=== PATIENT | male | born 1965 | race Caucasian/White ===

== ENCOUNTER 2016-10-04 08:06 | Observation (INO) | payer BC ==
--- NOTE | 2016-10-04 08:36 | ERNOTE ---
Lower Extremity HPI - General Lower Extremities Pain: leg: right Source: patient Exam Limitations: no limitations - Immun/Allergies/Home Medications Immunizations: IMMUNIZATION HX Immunizations Up to Date Yes History of Influenza Vaccine No Allergies/Adverse Reactions: Allergies Allergy/AdvReac Type Severity Reaction Status Date / Time No Known Allergies Allergy Verified 10/04/16 12:46 Home Medications: HOME MEDICATIONS NK [No Home Medication] 10/04/16 [Last Taken Unknown] - History of Present Illness Narrative: Patient woke up this morning with the feeling of a 'kirk horse' in his right calf. He is concerned as it is the same symptom that he had with a DVT in the past. He states that he was diagosed with an unprovoked DVT in 2006, had three intervention including filter placement (that was removed later) and diagnosis of PE, he was on coumadin till 2011. He also noticed in the night right lateral abdominal/flank pain Date (Duration): 10/04/16 Time (Timing): 03:00 Occurred: this morning Review of Systems - Review of Systems Constitutional: Absent: recent illness, fever Respiratory: Absent: shortness of breath, cough Cardiology: Absent: chest pain, palpitations Gastrointestinal/Abdominal: Present: See HPI, abdominal pain. Absent: nausea, vomiting, diarrhea Genitourinary: Present: no symptoms reported Musculoskeletal: Present: See HPI Skin: Absent: rash Neurological: Absent: weakness, numbness - Patient's Past Medical History Patient History - Medical: Kidney stone Patient History - Cardiac/Respiratory: Deep Vein Thrombosis, Pulmonary Embolism Patient History - Cancer: No Hx of Cancer Patient History - Surgical Procedures: No surgical history Patient History - Other: None - Family History Father Family History - Medical: Diabetes Type 2 Mother Family History - Medical: Diabetes Type 2 Family History - Cardiac/Respiratory: Coronary Heart Disease, CVA/Stroke Brother Family History - Cardiac/Respiratory: Hypertension Sister Family History - Medical: Diabetes Type 2 - Social History Living Situations: home Psych History: No pertinent hx Smoking Status: Never smoker Have you smoked in the past 12 months: No Do you dip or chew tobacco: No Alcohol Use: occasionally Drug Use: none - Immunizations Immunizations Up to Date: Yes History of Influenza Vaccine: No Physical Exam - Physical Exam General Appearance: Present: wd/wn, alert, no apparent distress Respiratory: Present: no respiratory distress, normal breath sounds, no accessory muscle use, chest nontender, lungs clear Cardiovascular/Chest: Present: regular rate, rhythm, no murmur Gastrointestinal/Abdominal: Present: normal bowel sounds, nondistended, soft, tenderness - right lateral abdomen in mid axillary line between ribs and pelvis mildly tender Extremity Exam: Present: normal inspection, no edema, other - tender in popliteal fossa, right calf 2cm> than left. Absent: calf tenderness Neurological Exam: Present: alert, oriented, normal mood/affect, no motor/ sensory deficits ED Progress - Results and Orders Patient's Lab Results:: I have reviewed the patient's lab results. - Vital Signs Patient's Vital Signs:: I have reviewed the patient's vital signs. Vital Signs: Vital Signs 10/04/16 08:18 Temperature 37.0 C Pulse Rate 107 H Respiratory 16 Rate Blood Pressure 155/93 O2 Sat by Pulse 97 Oximetry - CT/Ultrasound CT/Ultrasound Narrative: U/S DVT involving calf, popliteal and femoral veins CT chest: multiple PE in multiple lobes - Progress/Reassessment Chief Complaint: Lower Extremity Pain/ Injury Progress Note-Subjective: 10/04/16 10:12 discussed U/S results, as patient was slightly tachycardic on arrival and had prior PE will get chest CT to look for PE 10/04/16 11:[address] results with patient, agrees to admission 10/04/16 11:41 discussed with Gela Meza, okay to admit, will give lovenox in ER and have attending decide on choice of anticoagulation patient also has new onset diabetes, not in DKA though, can't start metformin as patient just had IV contrast, will give dose of insulin, consider incidental pancreatic findings Departure Clinical Impression: DVT (deep venous thrombosis) Qualifiers: DVT location: lower extremity Affected thrombotic vein of extremity: femoral Laterality: right Chronicity: acute Qualified Code(s): I82.411 - Acute embolism and thrombosis of right femoral vein Pulmonary embolism Qualifiers: Pulmonary embolism type: other Chronicity: acute Acute cor pulmonale presence: without acute cor pulmonale Qualified Code(s): I26.99 - Other pulmonary embolism without acute cor pulmonale Diabetes mellitus Qualifiers: Diabetes mellitus type: type 2 Diabetes mellitus complication status: without complication 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
[2016-10-04 10:08] LABS: Prothrombin Time (Patient) 10.6 Seconds (9.4-11.4)
[2016-10-04 10:10] LABS: INR 1.02 INR (0.90-1.10); Partial Thrombolplastin Time 26.5 Seconds (24-32)
[2016-10-04 10:12] LABS: Hematocrit 45.1 % (42.0-52.0); Hemoglobin 16.3 gm/dL (13.5-18.0); Mean Cell Volume 86.9 fl (78-100); Mean Corpuscular Hemoglobin 31.4 pg (27-31); Mean Corpuscular Hgb Conc 36.1 g/dl (32-36); Mean Platelet Volume 10.3 fl (6.0-9.5); Platelet Count 161 K/mm3 (150-450); Red Blood Count 5.19 M/mm3 (4.7-6.0); White Blood Count 8.7 K/mm3 (4.0-10.5)
[2016-10-04 10:14] LABS: Total Cells Counted 100
[2016-10-04 10:26] LABS: Band 4 % (0-2.0); Lymphocyte 11 % (20-51); Monocyte 2 % (0-9); Neutrophil 83 % (42-75); Neutrophil # 7.2 K/mm3 (1.3-6.0)
[2016-10-04 10:27] LABS: Platelet Estimate Normal (NORMAL); RBC Morphology Normal (NORMAL)
[2016-10-04 10:32] LABS: Anion Gap 18.2 mmol/L (6.8-13.8); Bilirubin, Total 0.8 mg/dL (0.0-1.1); Ca. Corrected For Albumin 8.6 mg/dL (8.4-10.2); Calcium * 8.9 mg/dL (7.9-10.9); Carbon Dioxide 22.4 mmol/L (24-32.6); Potassium 4.6 mmol/L (3.4-4.6); Total Protein 7.7 gm/dL (6.2-8.2)
[2016-10-04 11:17] LABS: Hemoglobin A1C 9.5 % (4.00-6.0)
[2016-10-04] MEDS ORDERED: ENOXAPARIN SODIUM 100 MG/ML SYRG SC ONE (11:44)
[2016-10-04] MEDS ORDERED: INSULIN LISPRO 100 UNITS/ML VIAL SC ONE (12:13)
[2016-10-04] MEDS ORDERED: INSULIN LISPRO 100 UNITS/ML VIAL ONE (12:17)
[2016-10-04] MEDS ORDERED: oxyCODONE HCL/ACETAMINOPHEN 1 TAB TABLET ONE (12:17)
[2016-10-04] MEDS: oxyCODONE HCL/ACETAMINOPHEN 1 TAB TABLET PO PRN ×2 (12:20→20:15)
[2016-10-04] MEDS ORDERED: NORMAL SALINE 1,000 ML IV ONE (16:46)
[2016-10-04] MEDS: WARFARIN SODIUM 5 MG TABLET PO SCH (17:10)
[2016-10-04 17:26] LABS: Urine Bilirubin Negative (NEGATIVE); Urine Blood Negative /ul (NEGATIVE); Urine Ketone Negative (NEGATIVE); Urine Nitrite Negative (NEGATIVE); Urine Protein Negative (NEGATIVE); Urine Urobilinogen Normal (NORMAL)
[2016-10-04 17:37] LABS: Urine Appearance Clear; Urine Bacteria None Seen; Urine Color Yellow; Urine RBC None Seen /hpf (0-5); Urine WBC None Seen /hpf (0-5)
[2016-10-04] MEDS: INSULIN LISPRO 100 UNITS/ML VIAL SC SCH ×2 (17:49→20:19)
[2016-10-04] MEDS: NORMAL SALINE 1,000 ML IV PRN (18:30)
[2016-10-04] MEDS: INSULIN GLARGINE,HUM.REC.ANLOG 100 UNITS/ML VIAL SC SCH (20:18)
--- NOTE | 2016-10-04 20:22 | HP ---
<Gela Meza - Last Filed: 10/04/16 20:05> Chief Complaint - Chief Complaint Date of Service: 10/04/16 Time of Service: 18:05 Chief Complaint: DVT, PE, New onset diabetes. History of Present Illness: Williams is a 51 year old male with a history of prior DVT/PE (diagnosed in 2005 , on coumadin until 2011.) and kidney stone that presented to the ER today with c/o right calf pain since 3 am. ER work up showed DVT involving the right popliteal and femoral veins. Chest CT done today showed multiple PE in multiple locations. Patient was tachycardic in the ER but is not tachycardic currently. Blood glucose in the ER was found to be 535 but serum ketones were negative. Patient was given 12 units IV insulin in the ER. Significant family history of diabetes. - Patient's Past Medical History Patient History - Medical: Kidney stone Patient History - Cardiac/Respiratory: Deep Vein Thrombosis, Pulmonary Embolism Patient History - Cancer: No Hx of Cancer Patient History - Surgical Procedures: No surgical history Patient History - Other: None - Family History Father Family History - Medical: Diabetes Type 2 Family History - Cardiac/Respiratory: Coronary Heart Disease Mother Family History - Medical: Diabetes Type 2 Family History - Cardiac/Respiratory: Coronary Heart Disease, CVA/Stroke Brother Family History - Cardiac/Respiratory: Hypertension Sister Family History - Medical: Diabetes Type 2 - Social History Living Situations: home Abuse History: No History of abuse Psych History: No pertinent hx Smoking Status: Never smoker Have you smoked in the past 12 months: No Do you dip or chew tobacco: No Alcohol Use: occasionally Drug Use: none - Immunizations Immunizations Up to Date: Yes History of Influenza Vaccine: No Review Of Systems (GEN) - Review of Systems Generalized/Overall Review: Present: No Symptoms Reported EENTM: Present: No Symptoms Reported Respiratory: Present: No Symptoms Reported Cardiac: Present: No Symptoms Reported Abdominal: Present: No Symptoms Reported Genitourinary: Present: No Symptoms Reported Musculoskeletal: Present: Muscle Pain Neurological: Present: No Symptoms Reported Skin: Present: No Symptoms Reported Endocrine: Present: No Symptoms Reported Misc: All systems neg except as marked Immunizations: IMMUNIZATION HX Immunizations Up to Date Yes History of Influenza Vaccine No Allergies/Adverse Reactions: Allergies Allergy/AdvReac Type Severity Reaction Status Date / Time No Known Allergies Allergy Verified 10/04/16 12:46 Home Medications: HOME MEDICATIONS Enoxaparin Sodium [Lovenox] 90 mg SC Q12H #14 disp.syrin 10/05/16 [Last Taken Unknown] Warfarin Sodium [Coumadin] 5 mg PO DAILY@1700 #30 tablet 10/05/16 [Last Taken Unknown] glipiZIDE [Glipizide] 10 mg PO BID #60 tablet 10/05/16 [Last Taken Unknown] metFORMIN HCL [Glucophage] 500 mg PO BIDWM #60 tablet 10/05/16 [Last Taken Unknown] Exam - Exam Vital Signs: Vital Signs - Last Taken Temp 37.1 C 10/04/16 18:39 Pulse 83 10/04/16 18:39 Resp 20 10/04/16 18:39 BP 151/85 10/04/16 18:39 Pulse Ox 97 10/04/16 18:39 Constitutional: Present: Alert, Oriented x3, Cooperative, No distress ENT Exam: Present: hearing grossly normal Eye Exam: bilateral eye: normal inspection Neck: Present: full range of motion, supple Breasts: Present: Exam deferred Respiratory: Present: lungs clear, normal breath sounds, no respiratory distress Cardiovascular/Chest: Present: normal peripheral pulses, regular rate, rhythm, no chest tenderness, no murmur Peripheral Pulses: carotid (R): 2+, carotid (L): 2+, dorsalis-pedis (R): 2+, dorsalis-pedis (L): 2+, radial (R): 2+, radial (L): 2+ Abdomen: Present: Normal bowel sounds, soft, nontender, nondistended /Rectal: Present: Exam deferred Extremity: Present: calf tenderness - right calf, leg pain - right leg, swelling - right leg Skin Exam: Present: warm/dry, no cyanosis Neurologic: Present: alert, oriented x 3 Diagnostic Studies: Abnormal Lab Results 10/04/16 Range/Units 17:20 Urine Glucose (UA) >=1000 H (NEGATIVE) mg/dL Laboratory Results WBC 8.7 K/mm3 (4.0-10.5) 10/04/16 08:35 RBC 5.19 M/mm3 (4.7-6.0) 10/04/16 08:35 Hgb 16.3 gm/dL (13.5-18.0) 10/04/16 08:35 Hct 45.1 % (42.0-52.0) 10/04/16 08:35 MCV 86.9 fl (78-100) 10/04/16 08:35 MCH 31.4 pg (27-31) H 10/04/16 08:35 MCHC 36.1 g/dl (32-36) H 10/04/16 08:35 RDW 12.0 % (11.5-14.0) 10/04/16 08:35 Plt Count 161 K/mm3 (150-450) 10/04/16 08:35 MPV 10.3 fl (6.0-9.5) H 10/04/16 08:35 Neutrophils % (Manual) 83 % (42-75) H 10/04/16 08:35 Band Neuts % (Manual) 4 % (0-2.0) H 10/04/16 08:35 Lymphocytes % (Manual) 11 % (20-51) L 10/04/16 08:35 Monocytes % (Manual) 2 % (0-9) 10/04/16 08:35 Neutrophils # (Manual) 7.2 K/mm3 (1.3-6.0) H 10/04/16 08:35 Lymphocytes # (Manual) 1.0 k/mm3 (1.5-3.5) L 10/04/16 08:35 Monocytes # (Manual) 0.2 k/mm3 (0.0-1.0) 10/04/16 08:35 Platelet Estimate Normal (NORMAL) 10/04/16 08:35 RBC Morphology Normal (NORMAL) 10/04/16 08:35 PT 10.6 Seconds (9.4-11.4) 10/04/16 08:35 INR (Anticoag Therapy) 1.02 INR (0.90-1.10) 10/04/16 08:35 PTT (Glynn) 26.5 Seconds (24-32) 10/04/16 08:35 D-Dimer 4.79 mg/L (0.19-0.49) H 10/04/16 08:55 VBG pH 7.375 (7.32-7.43) 10/04/16 11:30 Sodium 134 mmol/L (132-142) 10/04/16 08:35 Plasma Sodium 141 mmol/L (130-142) 10/04/16 08:35 Potassium 4.6 mmol/L (3.4-4.6) 10/04/16 08:35 Chloride 98 mmol/L (97-106) 10/04/16 08:35 Carbon Dioxide 22.4 mmol/L (24-32.6) L 10/04/16 08:35 Anion Gap 18.2 mmol/L (6.8-13.8) H 10/04/16 08:35 BUN 18 mg/dL (6-23) 10/04/16 08:35 Creatinine 1.20 mg/dL (0.4-1.4) 10/04/16 08:35 Est GFR (Non-Af Amer) 67 mL/min (60-130) 10/04/16 08:35 BUN/Creatinine Ratio 15.0 (9.0-21.6) 10/04/16 08:35 Random Glucose 535 mg/dL (70-110) H* 10/04/16 08:35 Mean Blood Glucose 230 mg/dL 10/04/16 08:35 Hemoglobin A1c 9.5 % (4.00-6.0) H 10/04/16 08:35 Calcium 8.9 mg/dL (7.9-10.9) 10/04/16 08:35 Calcium Adj for Albumin 8.6 mg/dL (8.4-10.2) 10/04/16 08:35 Total Bilirubin 0.8 mg/dL (0.0-1.1) 10/04/16 08:35 AST 12 U/L (0-48) 10/04/16 08:35 ALT 28 U/L (19-67) 10/04/16 08:35 Alkaline Phosphatase 93 U/L (50-170) 10/04/16 08:35 Total Protein 7.7 gm/dL (6.2-8.2) 10/04/16 08:35 Albumin 4.0 gm/dl (3.4-5.0) 10/04/16 08:35 Urine Color Yellow 10/04/16 17:20 Urine Appearance Clear 10/04/16 17:20 Urine pH 6.0 pH (5.0-7.0) 10/04/16 17:20 Ur Specific Section 1.010 SP.GR. (1.005-1.030) 10/04/16 17:20 Urine Protein Negative mg/dL (NEGATIVE) 10/04/16 17:20 Urine Glucose (UA) >=1000 mg/dL (NEGATIVE) H 10/04/16 17:20 Urine Ketones Negative mg/dL (NEGATIVE) 10/04/16 17:20 Urine Blood Negative /ul (NEGATIVE) 10/04/16 17:20 Urine Nitrate Negative (NEGATIVE) 10/04/16 17:20 Urine Bilirubin Negative mg/dl (NEGATIVE) 10/04/16 17:20 Urine Urobilinogen Normal EU/dl (NORMAL) 10/04/16 17:20 Ur Leukocyte Esterase Negative /ul (NEGATIVE) 10/04/16 17:20 Urine RBC None seen /hpf (0-5) 10/04/16 17:20 Urine WBC None seen /hpf (0-5) 10/04/16 17:20 Ur Epithelial Cells 0-5 /hpf (0-5) 10/04/16 17:20 Urine Bacteria None seen (NONE) 10/04/16 17:20 Urine Culture Comments No culture indicated 10/04/16 17:20 Serum Ketones Negative (NEGATIVE) 10/04/16 08:35 Assessment/Plan - Narrative Narrative: Williams is a 51 year old male admitted for DVT, multiple PEs and new-onset diabetes. patient was given lovenox in the ER at 1 mg/kg - will continue this inpatient every 12 hours. also start today on coumadin with pharmacy to dose. Given new-onset diabetes, will have light bulb replacer to see. pt will need to have teaching on home glucose monitoring. since pt has significant hyperglycemia, will order 1 liter NS bolus then NS IV at 100 ml per hour to follow. check UA. Since patient had IV contrast in the ER, I am unable to put him on any metformin at this time. will start pt on lantus 2 units bid. check labs in the am. reassess in am. - Assessment/Plan (1) DVT (deep venous thrombosis) Problem: Acute QualifierTitle: DVT location: lower extremity Affected thrombotic vein of extremity: femoral Laterality: right Chronicity: acute Qualified Code(s ): I82.411 - Acute embolism and thrombosis of right femoral vein (2) Diabetes mellitus Problem: Acute QualifierTitle: Diabetes mellitus type: type 2 Diabetes mellitus complication status: with hyperglycemia Diabetes mellitus terminal make up operator insulin use: unspecified long-term insulin use status Qualified Code(s): E11.65 - Type 2 diabetes mellitus with hyperglycemia (3) Pulmonary embolism Problem: Acute QualifierTitle: Pulmonary embolism type: other Chronicity: acute Acute cor pulmonale presence: without acute cor pulmonale Qualified Code(s): I26.99 - Other pulmonary embolism without acute cor pulmonale <Tulio Mendoza - Last Filed: 10/05/16 16:57> Immunizations: IMMUNIZATION HX Immunizations Up to Date Yes History of Influenza Vaccine No Exam - Exam Vital Signs: Vital Signs - Last Taken Temp 37.3 C 10/05/16 14:02 Pulse 92 10/05/16 14:02 Resp 16 10/05/16 14:02 BP 158/88 10/05/16 14:02 Pulse Ox 95 10/05/16 14:02 Diagnostic Studies: Abnormal Lab Results 10/04/16 10/05/16 10/05/16 Range/Units 17:20 05:30 05:30 RBC 4.47 L (4.7-6.0) M/mm3 Hct 39.7 L (42.0-52.0) % MCH 31.5 H (27-31) pg Plt Count 144 L (150-450) K/mm3 Immature Gran % (Auto) 0.50 H (0.001-0.429) % Eosinophils % 5.1 H (0.0-3.0) % Random Glucose 194 H D (70-110) mg/dL Urine Glucose (UA) >=1000 H (NEGATIVE) mg/dL Laboratory Results WBC 6.3 K/mm3 (4.0-10.5) D 10/05/16 05:30 RBC 4.47 M/mm3 (4.7-6.0) L 10/05/16 05:30 Hgb 14.1 gm/dL (13.5-18.0) 10/05/16 05:30 Hct 39.7 % (42.0-52.0) L 10/05/16 05:30 MCV 88.8 fl (78-100) 10/05/16 05:30 MCH 31.5 pg (27-31) H 10/05/16 05:30 MCHC 35.5 g/dl (32-36) 10/05/16 05:30 RDW 11.9 % (11.5-14.0) 10/05/16 05:30 Plt Count 144 K/mm3 (150-450) L 10/05/16 05:30 MPV 9.5 fl (6.0-9.5) 10/05/16 05:30 Immature Gran % (Auto) 0.50 % (0.001-0.429) H 10/05/16 05:30 Immature Gran # (Auto) 0.03 K/mm3 (0.000-0.0310) 10/05/16 05:30 Neutrophils % 56.4 % (42-75.0) 10/05/16 05:30 Neutrophils % (Manual) 83 % (42-75) H 10/04/16 08:35 Band Neuts % (Manual) 4 % (0-2.0) H 10/04/16 08:35 Lymphocytes % 30.7 % (20-51) 10/05/16 05:30 Lymphocytes % (Manual) 11 % (20-51) L 10/04/16 08:35 Monocytes % 7.0 % (0.0-9) 10/05/16 05:30 Monocytes % (Manual) 2 % (0-9) 10/04/16 08:35 Eosinophils % 5.1 % (0.0-3.0) H 10/05/16 05:30 Basophils % 0.3 % (0.0-1.0) 10/05/16 05:30 Nucleated RBC % 0.0 k/mm3 (0-1) 10/05/16 05:30 Neutrophils # 3.5 K/mm3 (1.3-6.0) 10/05/16 05:30 Neutrophils # (Manual) 7.2 K/mm3 (1.3-6.0) H 10/04/16 08:35 Lymphocytes # 1.9 k/mm3 (1.5-3.5) 10/05/16 05:30 Lymphocytes # (Manual) 1.0 k/mm3 (1.5-3.5) L 10/04/16 08:35 Monocytes # 0.4 k/mm3 (0.0-1.0) 10/05/16 05:30 Monocytes # (Manual) 0.2 k/mm3 (0.0-1.0) 10/04/16 08:35 Eosinophils # 0.3 k/mm3 (0.0-0.7) 10/05/16 05:30 Absolute Basophils 0.0 k/mm3 (0.0-0.1) 10/05/16 05:30 Platelet Estimate Normal (NORMAL) 10/04/16 08:35 RBC Morphology Normal (NORMAL) 10/04/16 08:35 PT 10.5 Seconds (9.4-11.4) 10/05/16 05:30 INR (Anticoag Therapy) 1.01 INR (0.90-1.10) 10/05/16 05:30 PTT (Mark Anthony) 26.5 Seconds (24-32) 10/04/16 08:35 D-Dimer 4.79 mg/L (0.19-0.49) H 10/04/16 08:55 VBG pH 7.375 (7.32-7.43) 10/04/16 11:30 Sodium 139 mmol/L (132-142) 10/05/16 05:30 Plasma Sodium 141 mmol/L (130-142) 10/05/16 05:30 Potassium 4.3 mmol/L (3.4-4.6) 10/05/16 05:30 Chloride 105 mmol/L (97-106) 10/05/16 05:30 Carbon Dioxide 27.4 mmol/L (24-32.6) 10/05/16 05:30 Anion Gap 10.9 mmol/L (6.8-13.8) 10/05/16 05:30 BUN 11 mg/dL (6-23) 10/05/16 05:30 Creatinine 0.84 mg/dL (0.4-1.4) 10/05/16 05:30 Est GFR (Non-Af Amer) 102 mL/min (60-130) D 10/05/16 05:30 BUN/Creatinine Ratio 13.1 (9.0-21.6) 10/05/16 05:30 Random Glucose 194 mg/dL (70-110) H D 10/05/16 05:30 Mean Blood Glucose 230 mg/dL 10/04/16 08:35 Hemoglobin A1c 9.5 % (4.00-6.0) H 10/04/16 08:35 Calcium 8.2 mg/dL (7.9-10.9) 10/05/16 05:30 Calcium Adj for Albumin 8.6 mg/dL (8.4-10.2) 10/04/16 08:35 Total Bilirubin 0.8 mg/dL (0.0-1.1) 10/04/16 08:35 AST 12 U/L (0-48) 10/04/16 08:35 ALT 28 U/L (19-67) 10/04/16 08:35 Alkaline Phosphatase 93 U/L (50-170) 10/04/16 08:35 Total Protein 7.7 gm/dL (6.2-8.2) 10/04/16 08:35 Albumin 4.0 gm/dl (3.4-5.0) 10/04/16 08:35 Urine Color Yellow 10/04/16 17:20 Urine Appearance Clear 10/04/16 17:20 Urine pH 6.0 pH (5.0-7.0) 10/04/16 17:20 Ur Specific Section 1.010 SP.GR. (1.005-1.030) 10/04/16 17:20 Urine Protein Negative mg/dL (NEGATIVE) 10/04/16 17:20 Urine Glucose (UA) >=1000 mg/dL (NEGATIVE) H 10/04/16 17:20 Urine Ketones Negative mg/dL (NEGATIVE) 10/04/16 17:20 Urine Blood Negative /ul (NEGATIVE) 10/04/16 17:20 Urine Nitrate Negative (NEGATIVE) 10/04/16 17:20 Urine Bilirubin Negative mg/dl (NEGATIVE) 10/04/16 17:20 Urine Urobilinogen Normal EU/dl (NORMAL) 10/04/16 17:20 Ur Leukocyte Esterase Negative /ul (NEGATIVE) 10/04/16 17:20 Urine RBC None seen /hpf (0-5) 10/04/16 17:20 Urine WBC None seen /hpf (0-5) 10/04/16 17:20 Ur Epithelial Cells 0-5 /hpf (0-5) 10/04/16 17:20 Urine Bacteria None seen (NONE) 10/04/16 17:20 Urine Culture Comments No culture indicated 10/04/16 17:20 Serum Ketones Negative (NEGATIVE) 10/04/16 08:35 Assessment/Plan - Narrative Narrative: I entirely supervised and directed the nurse practitioner care for this patient. No cause for coagulopathy was found when he had this problem previously. Will start treatment here, treat diabetes, and discharge for ongoing outpatient treatment. - Assessment/Plan (1) DVT (deep venous thrombosis) Problem: Acute Qualifiers: DVT location: lower extremity Affected thrombotic vein of extremity: femoral Laterality: right Chronicity: acute Qualified Code(s): I82.411 - Acute embolism and thrombosis of right femoral vein (2) Diabetes mellitus Problem: Acute Qualifiers: Diabetes mellitus type: type 2 Diabetes mellitus complication status: with hyperglycemia Diabetes mellitus terminal make up operator insulin use: unspecified terminal make up operator insulin use status Qualified Code(s): E11.65 - Type 2 diabetes mellitus with hyperglycemia (3) Pulmonary embolism Problem: Acute Qualifiers: Pulmonary embolism type: other Chronicity: acute Acute cor pulmonale presence: without acute cor pulmonale Qualified Code(s): I26.99 - Other pulmonary embolism without acute cor pulmonale
[2016-10-04] MEDS ORDERED: ENOXAPARIN SODIUM 100 MG/ML SYRG SC SCH (21:00)
[2016-10-04] MEDS ORDERED: INSULIN GLARGINE,HUM.REC.ANLOG 100 UNITS/ML VIAL SC SCH (21:00)
[2016-10-04] MEDS: ENOXAPARIN SODIUM 60 MG, ENOXAPARIN SODIUM 30 MG SC SCH ×2 (21:19)
[2016-10-05] MEDS: NORMAL SALINE 1,000 ML IV PRN (04:27)
[2016-10-05 05:42] LABS: Hematocrit 39.7 % (42.0-52.0); Hemoglobin 14.1 gm/dL (13.5-18.0); Mean Cell Volume 88.8 fl (78-100); Mean Corpuscular Hemoglobin 31.5 pg (27-31); Mean Corpuscular Hgb Conc 35.5 g/dl (32-36); Mean Platelet Volume 9.5 fl (6.0-9.5); Neutrophil # 3.5 K/mm3 (1.3-6.0); Neutrophil % 56.4 % (42-75.0); Platelet Count 144 K/mm3 (150-450); Red Blood Count 4.47 M/mm3 (4.7-6.0); Red Cell Distribution Width 11.9 % (11.5-14.0); White Blood Count 6.3 K/mm3 (4.0-10.5)
[2016-10-05 05:51] LABS: Prothrombin Time (Patient) 10.5 Seconds (9.4-11.4)
[2016-10-05 05:53] LABS: INR 1.01 INR (0.90-1.10)
[2016-10-05 05:54] LABS: Anion Gap 10.9 mmol/L (6.8-13.8); BUN/Creatinine Ratio 13.1 (9.0-21.6); Calcium * 8.2 mg/dL (7.9-10.9); Carbon Dioxide 27.4 mmol/L (24-32.6); Estimated Creat Clear 98.4; Potassium 4.3 mmol/L (3.4-4.6)
[2016-10-05] MEDS: oxyCODONE HCL/ACETAMINOPHEN 1 TAB TABLET PO PRN (06:29)
[2016-10-05] MEDS: INSULIN LISPRO 100 UNITS/ML VIAL SC SCH ×3 (07:42→16:17)
[2016-10-05] MEDS: INSULIN GLARGINE,HUM.REC.ANLOG 100 UNITS/ML VIAL SC SCH (07:45)
[2016-10-05] MEDS: ENOXAPARIN SODIUM 60 MG, ENOXAPARIN SODIUM 30 MG SC SCH ×2 (10:25)
[2016-10-05 14:03] VITALS: BP 158/88
[2016-10-05] MEDS: WARFARIN SODIUM 5 MG TABLET PO SCH (16:17)
--- NOTE | 2016-10-05 16:29 | DS ---
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 New diabetic. Right leg less symptomatic after starting Lovenox and coumadin. This is his second episode of DVT and PE. No cause found last time. He had a Wayne filter for a while, but it has now been removed. He has had right flank pain for a couple of weeks, and a history of kidney stones, so we did a CT stone protocol today and found no obstructing stone. I think the flank pain is probably due to a muscle strain. Procedures Performed: none Discharge Disposition: Home self care Disposition: Home self-care Condition: Good Discharge Activity: Activity as tolerated Discharge Diet: Consistent carbs Problem Oriented Discharge Instructions to Patient/Family: Pulmonary Embolism, Blood Glucose Monitoring, Adult, Deep Vein Thrombosis, Diabetes Mellitus and Food Additional Patient Instructions (free text): Will need testing strips for a Free Style Light Meter at discharge, and lancets. Please call all of these in to his pharmacy, enough for a year, prior to discharge. Refer to diabetic teaching as outpatient. Followup Dr. Bhakta in 1 week. CBC CMP and Protime all fasting in 2 days. Prescriptions (Any new or edited meds): Enoxaparin Sodium [Lovenox] 90 mg SC Q12H #14 disp.syrin Warfarin Sodium [Coumadin] 5 mg PO DAILY@1700 #30 tablet glipiZIDE [Glipizide] 10 mg PO BID #60 tablet metFORMIN HCL [Glucophage] 500 mg PO BIDWM #60 tablet Complete Home Medications List: Complete Home Medication List: Enoxaparin Sodium [Lovenox] 90 mg SC Q12H #14 disp.syrin 10/05/16 Warfarin Sodium [Coumadin] 5 mg PO DAILY@1700 #30 tablet 10/05/16 glipiZIDE [Glipizide] 10 mg PO BID #60 tablet 10/05/16 metFORMIN HCL [Glucophage] 500 mg PO BIDWM #60 tablet 10/05/16
== END 2016-10-05 18:40 | disposition home or self-care (01) ==
LOC: ER 08:06 → MS 11:47
PROVIDERS: ADMIT Nurse Practitioner Critical Care Medicine; ATTEND Allergy & Immunology
DX: I82.411 Acute embolism and thrombosis of right femoral vein (principal); I82.431 Acute embolism and thrombosis of right popliteal vein; I26.99 Other pulmonary embolism without acute cor pulmonale; E11.9 Type 2 diabetes mellitus without complications
CPT/HCPCS: 36415; 71275; 74000; 74176; 80048; 80053; 81001; 82009; 82800; 83036; 85025; 85379; 85610; 85730; 93971; 96372; 99284; G0378